=== PATIENT | male | born 1960 | race Caucasian/White ===

== ENCOUNTER 2018-06-13 04:40 | Observation (INO) | payer SELFPAY ==
[2018-06-13] MEDS ORDERED: EPINEPHRINE INJ/PF 1 MG/1 ML AMPULE ONE (04:57)
[2018-06-13] MEDS ORDERED: FAMOTIDINE INJ/PF 20 MG/2 ML SDV IV ONE (05:01)
[2018-06-13] MEDS ORDERED: DIPHENHYDRAMINE HCL 50 MG/ML VIAL IV ONE (05:01)
[2018-06-13] MEDS ORDERED: METHYLPREDNISOLONE INJ 125 MG/2 ML SDV IV ONE (05:01)
--- NOTE | 2018-06-13 05:05 | ER Document Report ---
Doctor's Note Notes: 06/13/18 05:02 I performed a quick triage evaluation patient. Patient is 57-year-old male who presents with complaint of itching and rash. It guarded tonight. He has no idea what might have caused it. No new medications. No new foods. No new detergents. Patient says the rash is mainly on his arms and thighs. It itches and sanchez. He denies any difficulty breathing. No difficulty swallowing. No chest pain. He does have some palpitations. No history of heart disease. No other complaints at this time. The only medication he takes is for acid reflux. On exam he is tachycardic. He does have hives on his upper extremities and lower extremities. He does not have any pharyngeal swelling. He does not have any wheezing. His lung rinaldi are clear. Is no signs of respiratory distress. He will be given Benadryl, Solu-Medrol, and Pepcid. 06/13/18 05:03 06/13/18 05:20 Patient's EKG does shows atrial fibrillation. I have ordered blood work looking at his heart and I have ordered a Cardizem drip. Denies any previous history of any heart problems whatsoever. Suspect atrial fibrillation was triggered by the allergic reaction itself.
[2018-06-13] MEDS ORDERED: DILTIAZEM HCL INJ 25 MG/5 ML VIAL IV ONE ×2 (05:17→06:42)
[2018-06-13] MEDS ORDERED: DILTIAZEM HCL/D5W 125 MG/125 ML RTUINJ IV PRN (05:18)
[2018-06-13 05:36] LABS: ABSOLUTE BASOPHILS # (AUTO) 0.1 10^3/uL (0.0-0.2); ABSOLUTE EOSINOPHILS # (AUTO) 0.2 10^3/uL (0.0-0.6); ABSOLUTE LYMPHOCYTES (AUTO) 1.5 10^3/uL (0.5-4.7); ABSOLUTE MONOCYTES (AUTO) 0.4 10^3/uL (0.1-1.4); ABSOLUTE NEUT (AUTO) 3.2 10^3/uL (1.7-8.2); HEMATOCRIT 42.8 % (37.9-51.0); HEMOGLOBIN 15.1 g/dL (13.5-17.0); LYMPHOCYTES % (AUTO) 27.9 % (13-45); MEAN CORPUSCULAR HEMOGLOBIN 33.4 pg (27.0-33.4); MEAN CORPUSCULAR HGB CONC 35.3 g/dL (32.0-36.0); MEAN CORPUSCULAR VOLUME 94 fl (80-97); MONOCYTES % (AUTO) 7.1 % (3-13); PLATELET COUNT 155 10^3/uL (150-450); RED BLOOD COUNT 4.53 10^6/uL (4.35-5.55); RED CELL DISTRIBUTION WIDTH 14.3 % (11.5-14.0); TOTAL CELLS COUNTED % (AUTO) 100 %; WHITE BLOOD COUNT 5.3 10^3/uL (4.0-10.5)
[2018-06-13 05:58] LABS: ALANINE AMINOTRANSFERASE 32 U/L (21-72); ALKALINE PHOSPHATASE 50 U/L (38-126); ANION GAP 12 (5-19); ASPARTATE AMINO TRANSFERASE 25 U/L (17-59); BILIRUBIN,DIRECT 0.4 mg/dL (0.0-0.4); BILIRUBIN,TOTAL 0.4 mg/dL (0.2-1.3); BLOOD UREA NITROGEN 12 mg/dL (7-20); CARBON DIOXIDE 24 mmol/L (22-30); CHLORIDE 108 mmol/L (98-107); GLUCOSE 198 mg/dL (75-110); POTASSIUM 3.8 mmol/L (3.6-5.0); SODIUM 144.1 mmol/L (137-145); TOTAL PROTEIN 6.8 g/dL (6.3-8.2)
--- NOTE | 2018-06-13 06:01 | RADIOLOGY REPORT (SQ) ---
EXAM DESCRIPTION: XR CHEST 1 VIEW COMPLETED DATE/TME: 06/13/2018 05:38 CLINICAL HISTORY: atrial fib COMPARISON: 05/27/2011 FINDINGS: Single frontal view of the chest. Leads overlie the chest. The cardiomediastinal silhouette has normal size and contour. No consolidation, pneumothorax, or pleural effusion. No displaced rib fractures identified. Upper abdominal soft tissues are unremarkable. IMPRESSION: 1. No acute pulmonary process identified.
--- NOTE | 2018-06-13 06:35 | ER Document Report ---
ED Allergic Reaction - General Mode of Arrival: Ambulatory Information source: Patient TRAVEL OUTSIDE OF THE [place] IN LAST 30 DAYS: No <JUDAH PEREZ - Last Filed: 06/13/18 09:12> <SEYMORU GARCIA - Last Filed: 06/13/18 16:30> - General Chief Complaint: Allergic Reaction Stated Complaint: POSSIBLE ALLERGIC REACTION Time Seen by Provider: 06/13/18 04:59 Notes: 57 year old male that presents to the emergency department today with complaints of an allergic reaction. Patient states she woke up this morning at 0100 with diffuse hives and associated itching and burning. Patient states he has had associated shortness of breath and feeling like his throat was closing. Patient states he has never been diagnosed with atrial fibrillation but has had multiple episodes in the past where he felt like his heart was racing and then was beating irregular. Patient denies any nausea or vomiting. (JUDAH PEREZ) - Related Data Allergies/Adverse Reactions: No Known Allergies Allergy (Unverified 06/13/18 10:59) Past Medical History - General Information source: Patient - Social History Smoking Status: Current Every Day Smoker Cigarette use (# per day): Yes Chew tobacco use (# tins/day): No Frequency of alcohol use: Rare Drug Abuse: None Lives with: Family Family History: Reviewed & Not Pertinent, CAD, CVA, Hypertension, Malignancy Patient has suicidal ideation: No Patient has homicidal ideation: No Renal/ Medical History: Reports: Hx Kidney Stones GI Medical History: Reports: Hx Gastroesophageal Reflux Disease Musculoskeletal Medical History: Reports Hx Musculoskeletal Trauma Surgical Hx: Negative <JUDAH PEREZ - Last Filed: 06/13/18 09:12> Review of Systems - Review of Systems Constitutional: No symptoms reported EENT: See HPI, Throat swelling Cardiovascular: No symptoms reported Respiratory: See HPI, Short of breath Gastrointestinal: denies: Nausea, Vomiting Genitourinary: No symptoms reported Male Genitourinary: No symptoms reported Musculoskeletal: No symptoms reported Skin: See HPI, Other - hives with itching/burning Hematologic/Lymphatic: No symptoms reported Neurological/Psychological: No symptoms reported -: Yes All other systems reviewed and negative <JUDAH PEREZ - Last Filed: 06/13/18 09:12> Physical Exam <JUDAH PEREZ - Last Filed: 06/13/18 09:12> <SEYMOUR GARCIA - Last Filed: 06/13/18 16:30> - Vital signs Vitals: Temp Pulse Resp BP Pulse Ox 98.2 F 128 H 22 H 165/125 H 97 06/13/18 04:42 06/13/18 04:42 06/13/18 04:42 06/13/18 04:42 06/13/18 04:42 - Notes Notes: PHYSICAL EXAM GENERAL: Alert, interacts well. No acute distress. HEAD: Normocephalic, atraumatic. EYES: Pupils equal, round, and reactive to light. Extraocular movements intact. ENT: Oral mucosa moist, tongue midline. No posterior oropharynx swelling. NECK: Full range of motion. Supple. Trachea midline. LUNGS: Clear to auscultation bilaterally, no wheezes, rales, or rhonchi. No respiratory distress. HEART: Irregularly irregular, tachycardic. No murmurs, gallops, or rubs. ABDOMEN: Soft, non-tender. Non-distended. Bowel sounds present in all 4 quadrants. No guarding, rigidity, or rebound. EXTREMITIES: Moves all 4 extremities spontaneously. No edema, radial and dorsalis pedis pulses 2/4 bilaterally. No cyanosis. NEUROLOGICAL: Alert and oriented x3. Normal speech. PSYCH: Normal affect, normal mood. SKIN: Warm, dry, normal turgor. No rashes or lesions noted. No hives. (JUDAH PEREZ) Course - Laboratory Result Diagrams: 06/13/18 05:22 06/13/18 05:22 <JUDAH PEREZ - Last Filed: 06/13/18 09:12> - Laboratory Result Diagrams: 06/13/18 05:22 06/13/18 05:22 <SEYMOUR GARCIA - Last Filed: 06/13/18 16:30> - Re-evaluation Re-evalutation: 06/13/18 08:57 Hives and other allergic symptoms resolved with Pepcid, Benadryl and Solu- Medrol. Epinephrine was pulled by the nurses but did not end up being given. Patient was placed on the monitor and found to be in atrial fibrillation with rapid ventricular response, patient has never been diagnosed with this before however his history of several months of feeling like his heart is racing and then slowing and then pausing and then recently again is consistent with intermittent atrial fibrillation. No etiology was found for the allergic reaction, no new drugs, soaps, lotions. Patient was initially given a bolus of diltiazem 10 mg and started on drip at 5 , after an hour this had made minimal impact on his heart rates were another bolus of 15 mg was given, shortly thereafter he converted into a sinus rhythm but he maintained a bradycardic rate for the next 2 hours even after we shut off the drip. I did discuss this patient with Dr. Cedeno who agreed that the patient should be admitted at least for observation given his bradycardia and the relatively new onset atrial fibrillation. I then discussed the case with Dr. Mauricio who agreed to admit the patient to his service in observation status on the telemetry care unit. Patient was informed of these findings. EKG does not show any ischemia, troponins negative. Patient is agreeable to being observed. (SEYMOUR GARCIA) - Vital Signs Vital signs: Temp Pulse Resp BP Pulse Ox 98.2 F 128 H 16 140/87 H 94 06/13/18 04:42 06/13/18 04:42 06/13/18 15:41 06/13/18 15:41 06/13/18 15:41 - Laboratory Laboratory results interpreted by me: 06/13/18 06/13/18 06/13/18 05:22 05:22 05:22 RDW 14.3 H Chloride 108 H Glucose 198 H Triglycerides 588 H HDL Cholesterol 28 L - EKG Interpretation by Me Additional EKG results interpreted by me: 06/13/18 08:57 EKG shows A. fib RVR with a rate of 128, left axis deviation, borderline prolonged QT interval, no ST segment elevations or depressions, no T-wave inversions per my interpretation. After second bolus of Cardizem patient's EKG shows sinus bradycardia at a rate of 48 with a first-degree AV block with [place] interval of 204, interventricular conduction delay with a QRS of 104, left axis deviation, no ST segment elevations or depressions, isolated T-wave inversions in lead III per my interpretation. (SEYMOUR GARCIA) Critical Care Note - Critical Care Note Total time excluding time spent on procedures (mins): 45 <SEYMOUR GARCIA - Last Filed: 06/13/18 16:30> Discharge <JUDAH PEREZ - Last Filed: 06/13/18 09:12> - Discharge Admitting Provider: Hospitalist - [facility] Unit Admitted: Telemetry <SEYMOUR GARCIA - Last Filed: 06/13/18 16:30> - Discharge Clinical Impression: Atrial fibrillation with RVR Allergic reaction Qualifiers: Encounter type: initial encounter Qualified Code(s): T78.40XA - Allergy, unspecified, initial encounter Condition: Good Disposition: ADMITTED OBSERVATION Scribe Attestation: 06/13/18 16:30 I personally performed the services described in the documentation, reviewed and edited the documentation which was dictated to the scribe in my presence, and it accurately records my words and actions. (SEYMOUR GARCIA) Scribe Documentation - Scribe Written by Ana Liliaibe:: Dianne Gonzalez, 06/13/201812 acting as scribe for :: Nicola <JUDAH PEREZ - Last Filed: 06/13/18 09:12>
[2018-06-13] MEDS ORDERED: ASPIRIN 325 MG TABLET PO ONE (08:43)
[2018-06-13] MEDS ORDERED: ACETAMINOPHEN 325 MG TABLET PO PRN (09:35)
[2018-06-13] MEDS ORDERED: FAMOTIDINE 20 MG TABLET PO PRN (09:35)
[2018-06-13] MEDS ORDERED: DIPHENHYDRAMINE HCL 25 MG CAPSULE PO PRN (09:47)
--- NOTE | 2018-06-13 10:05 | PDOC H&P ---
History of Present Illness Admission Date/PCP: 06/13/18 09:12 Patient complains of: itching History of Present Illness: ANTHONY MARTINEZ is a 57 year old male with no medical history who presents to the ED with sudden onset itching and hives. Patient states that he woke up from his sleep with diffuse itching. This progressed to hives and he felt that his breathing was becoming more difficult. This has never happened before. Patient denies new medications, detergents, food exposure. He notes that he had Spanish food dinner about 1-2 hours before symptom onset. He has eaten at this restaurant before. Patient presented to the ED and provided IV benadryl, steroids, and pepcid with improvement in symptoms. No airway compromise noted. Of note while in ED, noted to have palpitations. On monitor was found to be in Afib with RVR. No previous history. He received IV cardizem without improved in symptom. Was then started on Dilt GTT with improvement in HR. Unfortunately patient developed asymptomatic bradycardia with HR in the 40s. Cardiology was contacted and advised to keep in hospital overnight. Patient states that he is a current smoker, 1 PPD for 40 years. His family history is significant for early MD in his father (age 45). Has been experiencing increase stress over the past year. Has noted 3-4 episodes of heart racing over the last 6 months. Usually the symptoms resolve without intervention. Patient admitted to hospitalist service as observation in stable condition. Past Medical History Medical History: None GI Medical History: Reports: Gastroesophageal Reflux Disease Social History Lives with: Family Smoking Status: Current Every Day Smoker Cigarettes Packs Per Day: 1 Number of Years Smokin Frequency of Alcohol Use: Rare Hx Recreational Drug Use: No Drugs: None Hx Prescription Drug Abuse: No Family History Family History: Reviewed & Not Pertinent, CAD, CVA, Hypertension, Malignancy Parental Family History Reviewed: Yes - Father with MD at age 45 Children Family History Reviewed: No Sibling(s) Family History Reviewed.: No Medication/Allergy Home Medications: Ciprofloxacin HCl [Cipro 500 mg Tablet] 500 mg PO BID #20 tablet 12/30/14 Hydrocodone/Acetaminophen [[place] 5-325 mg Tablet] 1 tab PO Q6HP PRN #14 tablet 12/30/14 Metronidazole [Flagyl 500 mg Tablet] 500 mg PO BID #28 tablet 12/30/14 Ondansetron HCl [Zofran 4 mg Tablet] 1 - 2 tab PO Q4H PRN #10 tablet 12/30/14 Allergies/Adverse Reactions: No Known Allergies Allergy (Unverified 06/13/18 05:27) Review of Systems All systems: reviewed and no additional remarkable complaints except as stated Physical Exam Vital Signs: Temp Pulse Resp BP Pulse Ox 98.2 F 128 H 19 123/76 96 06/13/18 04:42 06/13/18 04:42 06/13/18 08:01 06/13/18 08:01 06/13/18 08:01 General appearance: PRESENT: no acute distress, cooperative, well-developed, well-nourished Head exam: PRESENT: atraumatic, normocephalic Mouth exam: PRESENT: moist, neck supple Throat exam: ABSENT: tonsillar erythema Neck exam: ABSENT: carotid bruit, JVD Respiratory exam: PRESENT: unlabored. ABSENT: tachypnea Cardiovascular exam: PRESENT: +S1, +S2. ABSENT: systolic murmur, tachycardia GI/Abdominal exam: PRESENT: normal bowel sounds, soft. ABSENT: tenderness Musculoskeletal exam: PRESENT: full ROM Neurological exam: PRESENT: alert, awake, CN II-XII grossly intact Psychiatric exam: PRESENT: appropriate affect Skin exam: PRESENT: dry, intact Results Laboratory Results: Labs reviewed on chart Impressions: Chest X-Ray 06/13/18 05:38 IMPRESSION: 1. No acute pulmonary process identified. Assessment & Plan - Diagnosis (1) Atrial fibrillation with RVR Is this a current diagnosis for this admission?: Yes Plan: New diagnosis. Unclear etiology at this point. Likely chronic based on timeline of symptoms. - Checking TSH - Follow up lytes, goal Mg>2, K>4 - Received Dilt GTT in ED, now off due to bradycardia - Will start Lopressor 12.5mg BID, first done tonight; goal HR<110 - Will need sleep study as an outpatient. AVERY can cause Afib - CHADSVasc: 0, no need for anticoagulation. Consider ASA (2) Tobacco abuse Is this a current diagnosis for this admission?: Yes Plan: Chronic smoking use, 40 pack year history. Counseled importance of smoking cessation. - Patient agreeable to trial of nicotene patches - [facility] (3) Unemployment Is this a current diagnosis for this admission?: Yes Plan: Cause of stress. No insurance. Does not follow with PCP - Will order HgA1c and lipid profile while here for risk stratification purposes - Consulted social work (4) Allergic reaction Qualifiers: Encounter type: initial encounter Qualified Code(s): T78.40XA - Allergy, unspecified, initial encounter Is this a current diagnosis for this admission?: Yes Plan: Most likely related to food consumed, given temporal relationship - Symptoms vastly improved - Ordered PO Benadryl and Pepcid PRN itching - Time Time Spent: 50 to 70 Minutes Smoking Cessation Education: over 10 minutes Medications reviewed and adjusted accordingly: Yes Anticipated discharge: Home Within: within 24 hours
[2018-06-13] MEDS: NICOTINE 21 MG/24 HR PATCH.TD24 TD SCH (10:24)
[2018-06-13 11:18] LABS: CHOLESTEROL 183.71 mg/dL (0-200)
[2018-06-13 11:29] LABS: DIRECT LDL 90 mg/dL (<100)
[2018-06-13 11:30] LABS: TRIGLYCERIDES 588 mg/dL (<150)
[2018-06-13] MEDS ORDERED: RISPERIDONE 1 MG TABLET PO ONE (17:00)
--- NOTE | 2018-06-13 19:39 | EKG REPORT ---
SEVERITY:- OTHERWISE NORMAL ECG - SINUS BRADYCARDIA BORDERLINE LEFT AXIS DEVIATION : Confirmed by: Claire Cedeno MD 13-Jun-2018 19:38:26
--- NOTE | 2018-06-13 19:39 | EKG REPORT ---
SEVERITY:- ABNORMAL ECG - ATRIAL FIBRILLATION LEFT ANTERIOR FASCICULAR BLOCK BORDERLINE PROLONGED QT INTERVAL : Confirmed by: Claire Cedeno MD 13-Jun-2018 19:38:35
[2018-06-14] MEDS: METOPROLOL TARTRATE 25 MG TABLET PO SCH ×2 (02:12→09:05)
[2018-06-14 06:52] LABS: ANION GAP 15 (5-19); BLOOD UREA NITROGEN 16 mg/dL (7-20); CALCIUM 9.4 mg/dL (8.4-10.2); CARBON DIOXIDE 21 mmol/L (22-30); CHLORIDE 107 mmol/L (98-107); GLUCOSE 158 mg/dL (75-110); SODIUM 142.6 mmol/L (137-145)
[2018-06-14 08:46] VITALS: BP 134/86
[2018-06-14] MEDS: NICOTINE 21 MG/24 HR PATCH.TD24 TD SCH (09:05)
--- NOTE | 2018-06-14 11:20 | PDOC DISCHARGE SUMMARY ---
General - Admit/Disc Date/PCP Admission Date/Primary Care Provider: 06/13/18 09:12 Discharge Date: 06/14/18 - Discharge Diagnosis (1) Atrial fibrillation with RVR Is this a current diagnosis for this admission?: Yes Summary: New diagnosis. Likely chronic based on timeline of symptoms. - TSH wnl, electrolytes acceptable - Follow up lytes, goal Mg>2, K>4 - Received Dilt GTT in ED at admission, transitioned to Lopressor 12.5mg BID, first done tonight; goal HR<110 - Will need sleep study as an outpatient. AVERY can cause Afib - CHADSVasc: 0, no need for anticoagulation. Will started ASA 81 given history of CAD and high likelihood of CAD Outpatient plan - Script given for Lopressor 12.5mg BID - Purchase ASA 81mg PO daily - Follow up with cardiology, Dr. Sales, as outpatient (2) Tobacco abuse Is this a current diagnosis for this admission?: Yes Summary: Current, 1 PPD smoker. Smoking cessation counseling provided. Used Nicotene patch. Outpatient plan - Pt seems motivated to stop smoking - Script given for nicotene patch - Info given for [employer] [place] ( ) for assistance. They will provide free supplies. (3) Unemployment Is this a current diagnosis for this admission?: Yes Summary: Cause of stress. No insurance. Does not follow with PCP - Consulted social work (4) Allergic reaction Is this a current diagnosis for this admission?: Yes Summary: Most likely related to food consumed, given temporal relationship. Patient also mentioned that his dog has fleas - Symptoms improved/resolved at discharge - Counseled to have PO Benadryl and Pepcid PRN itching for at home use - Treatment of dog (5) Hypertriglyceridemia Is this a current diagnosis for this admission?: Yes Summary: Very elevated Triglyceride level. Patient states he does not eat a lot of fatty foods or processed food. Father with PR at early age - Started statin (medium intensity Lovustatin 40mg daily) as this is on 4$ list at [facility] - Ideally should be on high intensity statin given 10 year risk score - Additional Information Resuscitation Status: Full Code Discharge Diet: Cardiac Discharge Activity: Activity As Tolerated Prescriptions: Aspirin [Aspirin 81 mg Chewable Tablet] 81 mg PO DAILY #1 pkg Lovastatin 40 mg PO DAILY #30 tablet Metoprolol Tartrate [Lopressor 25 mg Tablet] 12.5 mg PO Q12 30 Days #60 tablet Nicotine [Nicoderm 21 mg/24 Hr Transderm Patch] 1 each TD DAILY #30 patch.td24 Home Medications: Multivit-Min/Folic/Vit K/Lycop [One-A-Day Men's 50 Plus Tablet] 1 each PO DAILY 06/13/18 Omeprazole Magnesium [Prilosec Otc] 20 mg PO DAILY 06/13/18 Aspirin [Aspirin 81 mg Chewable Tablet] 81 mg PO DAILY #1 pkg 06/14/18 Lovastatin 40 mg PO DAILY #30 tablet 06/14/18 Metoprolol Tartrate [Lopressor 25 mg Tablet] 12.5 mg PO Q12 30 Days #60 tablet 06/14/18 Nicotine [Nicoderm 21 mg/24 Hr Transderm Patch] 1 each TD DAILY #30 patch.td24 06/14/18 History of Present Illness History of Present Illness: ANTHONY MARTINEZ is a 57 year old male with no medical history who presents to the ED with sudden onset itching and hives. Patient states that he woke up from his sleep with diffuse itching. This progressed to hives and he felt that his breathing was becoming more difficult. This has never happened before. Patient denies new medications, detergents, food exposure. He notes that he had Khmer food dinner about 1-2 hours before symptom onset. He has eaten at this restaurant before. Patient presented to the ED and provided IV benadryl, steroids, and pepcid with improvement in symptoms. No airway compromise noted. Of note while in ED, noted to have palpitations. On monitor was found to be in Afib with RVR. No previous history. He received IV cardizem without improved in symptom. Was then started on Dilt GTT with improvement in HR. Unfortunately patient developed asymptomatic bradycardia with HR in the 40s. Cardiology was contacted and advised to keep in hospital overnight. Patient states that he is a current smoker, 1 PPD for 40 years. His family history is significant for early PR in his father (age 45). Has been experiencing increase stress over the past year. Has noted 3-4 episodes of heart racing over the last 6 months. Usually the symptoms resolve without intervention. Patient admitted to hospitalist service as observation in stable condition. Physical Exam Vital Signs: Temp Pulse Resp BP Pulse Ox 97.8 F 59 L 16 134/86 H 97 06/14/18 08:45 06/14/18 08:45 06/14/18 08:45 06/14/18 08:45 06/14/18 08:45 Intake & Output 06/13/18 06/14/18 06/15/18 06:59 06:59 06:59 Intake Total 255 Balance 255 Weight 97.5 kg General appearance: PRESENT: no acute distress, cooperative Head exam: PRESENT: normocephalic Mouth exam: PRESENT: moist Respiratory exam: PRESENT: unlabored. ABSENT: tachypnea Cardiovascular exam: PRESENT: RRR. ABSENT: irregular rhythm, tachycardia GI/Abdominal exam: PRESENT: soft. ABSENT: tenderness Musculoskeletal exam: PRESENT: ambulatory Neurological exam: PRESENT: alert, awake, CN II-XII grossly intact Psychiatric exam: PRESENT: appropriate affect Skin exam: PRESENT: dry, intact Results Laboratory Results: 06/14/18 05:52 06/14/18 05:52 Sodium 142.6 Potassium 4.0 Chloride 107 Carbon Dioxide 21 L Anion Gap 15 BUN 16 Creatinine 0.78 Est GFR ( Amer) > 60 Est GFR (Non-Af Amer) > 60 Glucose 158 H Calcium 9.4 Magnesium 1.9 Impressions: Chest X-Ray 06/13/18 05:38 IMPRESSION: 1. No acute pulmonary process identified. Qualifiers - * PATIENT BEING DISCHARGED WITH ANY OF THE FOLLOWING DIAGNOSIS: No Plan Time Spent: Less than 30 Minutes
== END 2018-06-14 11:10 | disposition home or self-care (01) ==
LOC: ER 04:40 → EH 09:12 → 4S 17:42 → 3S 19:59 → 3W 20:05 → 3S 20:11
PROVIDERS: ADMIT Internal Medicine; ATTEND Internal Medicine
PROC: HZ31ZZZ Individual Counseling for Substance Abuse Treatment, Behavioral (ICD-10-PCS; principal; 2018-06-13)
DX: I48.91 Unspecified atrial fibrillation (principal); F17.210 Nicotine dependence, cigarettes, uncomplicated; Z56.0 Unemployment, unspecified; T78.40XA Allergy, unspecified, initial encounter; X58.XXXA Exposure to other specified factors, initial encounter; E78.1 Pure hyperglyceridemia; R00.1 Bradycardia, unspecified; T46.1X5A Adverse effect of calcium-channel blockers, initial encounter; Y92.239 Unspecified place in hospital as the place of occurrence of the external cause; I25.2 Old myocardial infarction; R06.02 Shortness of breath; L50.8 Other urticaria; I44.0 Atrioventricular block, first degree; K21.9 Gastro-esophageal reflux disease without esophagitis; Z79.899 Other long term (current) drug therapy
CPT/HCPCS: 93005; 99291; 96375; 96365; 96366; 36415 ×2; 83735 ×2; 84443; 85025; 80048; 80053; 84484; 83036; 80061; 71045; 93010; 99406; G0378 ×3; J1200; J3490 ×2; J2930; S0028